=== PATIENT | female | born 1960 | race Caucasian/White ===

== ENCOUNTER 2023-02-19 15:05 | Outpatient (CLI) | payer MEDICAID, SELFPAY ==
[2023-02-19 16:23] LABS: Alanine Aminotransferase 51 U/L (0-33); Albumin Level 4.4 g/dL (3.5-5.2); Alkaline Phosphatase 146 U/L (35-105); Anion Gap 15.2 (5-19); Aspartate Amino Transferase 30 U/L (0-32); Blood Urea Nitrogen 14 mg/dL (8-23); Calcium 9.6 mg/dL (8.5-10.5); Carbon Dioxide 28 mmol/L (22-29); Chloride 100 mmol/L (98-107); Glomerular Filtration Rate 125.9 mL/min (90-130); Glucose 85 mg/dL (65-115); Osmolality Calculated 288 mOsm/kg (285-295); Potassium 4.2 mmol/L (3.5-5.1); Sodium 139 mmol/L (136-145); Total Bilirubin 0.2 mg/dL (0.15-1.2); Total Protein 7.4 g/dL (6.6-8.7)
== END 2023-02-19 15:06 | disposition home or self-care (01) ==
LOC: SPT 15:07
PROVIDERS: Visit Provider Podiatrist Foot & Ankle Surgery
DX: Z46.89 Encounter for fitting and adjustment of other specified devices (principal); M72.2 Plantar fascial fibromatosis; B35.1 Tinea unguium
CPT/HCPCS: 36415; 80053; 97760; L4397

== ENCOUNTER 2023-02-26 11:41 | Outpatient (CLI) | payer MEDICAID, SELFPAY ==
--- NOTE | 2023-02-26 11:49 | MM_ITS ---
WS: [id number] BILATERAL 3D TOMOSYNTHESIS DIGITAL SCREENING MAMMOGRAPHY WITH CAD CLINICAL INFORMATION: SCREENING HISTORY: Screening mammogram. No current complaints. COMPARISON: Baseline TECHNIQUE: Bilateral CC and MLO views. FINDINGS: The breasts are composed of heterogeneous fibroglandular density tissue, which can limit the detectio n of small underlying mass lesions. 11 mm spiculated lesion anterior RIGHT breast best seen on the ML O view. Recommend RIGHT diagnostic mammography and ultrasound for further evaluation. Unremarkable LEFT breast. Punctate and lucent centered calcifications. MM/[place] [id number] IMPRESSION: BI-RADS: 0-Incomplete: Need additional imaging evaluation FOLLOW UP: Need Additional Imaging 11 mm spiculated lesion anterior RIGHT breast best seen on the MLO view. Recomm end RIGHT diagnostic mammography and ultrasound for further evaluation.
== END 2023-02-26 11:42 | disposition home or self-care (01) ==
PROVIDERS: PCP Family Medicine; Visit Provider Family Medicine
DX: Z12.31 Encounter for screening mammogram for malignant neoplasm of breast (principal)
CPT/HCPCS: 77063; 77067

== ENCOUNTER 2023-04-22 13:54 | Outpatient (CLI) | payer MEDICAID, SELFPAY ==
--- NOTE | 2023-04-22 14:03 | MM_ITS ---
WS: [id number] RIGHT 3D TOMOSYNTHESIS DIGITAL MAMMOGRAPHY WITH CAD CLINICAL INFORMATION: ABNORMAL MAMMO HISTORY: Additional views COMPARISON: February 26, 2023 TECHNIQUE: 3 views of the right breast were obtained. FINDINGS: The right breast is composed of heterogeneous fibroglandular density tissue, which can limit the dete ction of small underlying mass lesions. Previously described 11 mm spiculated lesion anterior RIGHT b reast partially compresses out on the spot compression views. Ultrasound described below. ULTRASOUND BREAST RIGHT TECHNIQUE: Ultrasound right breast focused area of concern. CLINICAL INFORMATION: ABNORMAL MAMMO FINDINGS: Ultrasound RIGHT breast at the 11 to 3:00 position. At the 12:00 position 2 cm from the nipple is a s mall shadowing ill-defined hypoechoic lesion measuring approximately 5.2 x 4.4 x 4.8 mm. This is inde terminant and recommend further evaluation with ultrasound-guided biopsy. MM/[place] [id number] IMPRESSION: BI-RADS: 4-Suspicious Finding-Biopsy Should Be Considered FOLLOW UP: US Guided Biopsy Recommended
== END 2023-04-22 13:55 | disposition home or self-care (01) ==
PROVIDERS: PCP Family Medicine; Visit Provider Family Medicine
DX: R92.8 Other abnormal and inconclusive findings on diagnostic imaging of breast (principal)
CPT/HCPCS: 76642; 77061; G0279

== ENCOUNTER 2023-05-15 13:58 | Outpatient (CLI) | payer MEDICAID, SELFPAY ==
--- NOTE | 2023-05-15 14:10 | US_ITS ---
WS: [id number] ULTRASOUND-GUIDED RIGHT BREAST BIOPSY CLINICAL INFORMATION: R BREAST LUMP COMPARISON: 04/22/2023 FINDINGS: The procedure including risks, benefits, and complications were discussed with the patient who agreed to proceed. Using sterile technique patient was prepped and draped in the usual sterile fashion. Aft er 1% lidocaine utilizing real-time ultrasound guidance four 14-gauge cores were obtained of the RIGH T breast lesion at the 12 o'clock position 2 cm from the nipple. Subsequently a titanium clip was lyle ashley in the biopsy cavity. No immediate complications. Pathology demonstrates Right breast, 12:00 position, 2.0 cm from nipple, needle core biopsy: 1. Benign breast parenchyma with focal stromal fibrosis/hyalinization. 2. Rare background benign breast epithelial components with focal usual ductal hyperplasia. 3. No in-situ or invasive malignancy is seen. IMPRESSION: 1. Uncomplicated ultrasound-guided RIGHT breast biopsy. 2. The pathology demonstrates benign breast parenchyma. No malignancy. 3. Recommend return to annual screening mammography. US/[place] [id number] BI-RADS: 2-Benign FOLLOW UP: 1 Year Follow-up
== END 2023-05-15 13:59 | disposition home or self-care (01) ==
PROVIDERS: PCP Family Medicine; Visit Provider Family Medicine
DX: N63.15 Unspecified lump in the right breast, overlapping quadrants (principal); N62 Hypertrophy of breast; N60.11 Diffuse cystic mastopathy of right breast
CPT/HCPCS: 19083; 88305

== ENCOUNTER → 2023-11-08 11:50 | Outpatient (BNVA) | payer MEDICAID, SELFPAY | PROVIDERS: PCP Family Medicine; Visit Provider Family Medicine Adult Medicine | DX: R79.89 Other specified abnormal findings of blood chemistry (principal); R73.03 Prediabetes; D75.1 Secondary polycythemia; J43.9 Emphysema, unspecified; R63.5 Abnormal weight gain; R03.0 Elevated blood-pressure reading, without diagnosis of hypertension | CPT/HCPCS: 80053; 83036; 84443; 85025 ==

== ENCOUNTER → 2023-11-18 10:19 | Outpatient (BNVA) | payer MEDICAID, SELFPAY | PROVIDERS: PCP Family Medicine; Referring Provider Family Medicine; Visit Provider Internal Medicine Pulmonary Disease | DX: R06.02 Shortness of breath (principal) | CPT/HCPCS: 36415; 82785; 86003 ==

== ENCOUNTER 2023-12-05 10:23 | Outpatient (CLI) | payer MEDICAID, SELFPAY ==
--- NOTE | 2023-12-05 10:30 | CT_ITS ---
WS: [id number] LDCT LUNG CANCER SCREENING HISTORY: Cancer Screen TECHNIQUE: Axial imaging performed from the apices to 1 cm below the costophrenic angles. Coronal and sagittal reformats are submitted with axial MIP series. All CT scans at [facility] use at least one of these dose optimization techniques: automated exposure control; mA and/or kV adjustment per patient size (includes targeted exams where dose is matched to clinical indication); or iterativ e reconstruction. DLP: 92.49 mGy.cm DIvol: Mean CTDIvol: 2.30 (mGy) COMPARISON: None available. Diagnostic quality: Satisfactory Lungs: Moderate pulmonary hyperexpansion with centrilobular emphysema. Areas of mild mosaic attenuati on bilaterally. Slightly spiculated, noncalcified solid nodule in the RIGHT upper lobe measures 11 mm . No additional mass or nodule identified. Heart: Normal size heart with no pericardial effusion.. Other findings: Mild atherosclerosis aorta. Normal pulmonary artery. No adenopathy. Small hiatal tray ia. Lobulated LEFT adrenal adenoma 17 x 16 mm. Increase in thoracic kyphosis with scoliosis. IMPRESSION: CT/CT lung screening [id number] LUNG-RADS: 4A-Probably Suspicious FOLLOW UP: 3 Month LDCT OTHER FINDINGS (S MODIFIER): None.
== END 2023-12-05 10:24 | disposition home or self-care (01) ==
LOC: RAD 10:24
PROVIDERS: PCP Family Medicine; Visit Provider Internal Medicine Pulmonary Disease
DX: Z12.2 Encounter for screening for malignant neoplasm of respiratory organs (principal); F17.210 Nicotine dependence, cigarettes, uncomplicated; J43.2 Centrilobular emphysema; R91.1 Solitary pulmonary nodule
CPT/HCPCS: 71271

== ENCOUNTER 2023-12-12 12:44 | Outpatient (CLI) | payer MEDICAID, SELFPAY ==
[2023-12-12 13:08] VITALS: PULSE 86; RESP 18; O2SAT 98
[2023-12-12] MEDS: albuterol 2.5 mg/3 mL Neb INHALATION (13:08)
[2023-12-12 13:12] VITALS: PULSE 85
== END 2023-12-12 12:45 | disposition home or self-care (01) ==
PROVIDERS: PCP Family Medicine Adult Medicine; Visit Provider Internal Medicine Pulmonary Disease
DX: F17.200 Nicotine dependence, unspecified, uncomplicated (principal)
CPT/HCPCS: 94060; 94618; 94726; 94729; J7613

== ENCOUNTER 2023-12-24 10:06 | Outpatient (CLI) | payer MEDICAID, SELFPAY ==
--- NOTE | 2023-12-24 10:30 | PETR_ITS ---
PROCEDURE INFORMATION: Exam: PET/CT Skull Base to Mid-thigh Exam date and time: 12/24/2023 10:57 AM Age: 63 years old Clinical indication: Abnormal findings; 11mm lung nodule LABS AND CLINICAL REPORTS: Glucose: 112 mg/dl Treatment strategy for malignancy (PET staging): Initial Staging (PI) TECHNIQUE: Imaging protocol: Following at least four-hour fasting and following the injection of radiopharmaceutical, low dose CT images were obtained. Then, PET images were obtained. Attenuation corrected images were constructed using the CT scan. Fused images of PET and CT were reviewed. The standardized uptake values (SUV) reported below are maximum values within a region of interest, expressed in gm/ml. Exam includes orbital meatal line to mid-thigh. Radiopharmaceutical: 11.9 mCi F-18 FDG (Fluorodeoxyglucose), IV. Time of imaging post radiopharmaceutical administration: 1 hour Injection site: Left antecubital COMPARISON: No relevant prior studies available. FINDINGS: Brain: Visualized brain has normal physiologic uptake. Pharynx: No abnormal uptake. Larynx: No abnormal uptake. Lungs, pleura and trachea: No abnormal uptake. A solid right upper lobe nodule on series 3, image 70 measuring 1.1 cm in diameter is noted, SUV max 1.3. An approximately 2 mm solid noncalcified left upper lobe nodule is noted laterally on series 3, image 71 without elevated uptake. [id number] bilateral centrilobular emphysematous changes are present. Heart: Normal physiologic uptake. Mediastinal space: No abnormal uptake. Liver: No abnormal uptake. Gallbladder and bile ducts: No abnormal uptake. Pancreas: No abnormal uptake. Spleen: No abnormal uptake. Adrenal glands: Mild nodularity of the bilateral adrenal glands is noted with low-level uptake, SUV max 2.1 on the left and SUV max 2.2 on the right. The largest nodule is present on the left measuring 1.8 x 1.4 cm on series 3, image 119. Kidneys and ureters: No abnormal uptake. Stomach and bowel: No abnormal uptake. Reproductive: Mild focal uptake in the region of the uterine fundus on the left is noted, SUV max 3.9 on PET series 12, image 183. This uptake may alternatively be within an adjacent left ovary. Vasculature: No abnormal uptake. There are diffuse atherosclerotic changes. Lymph nodes: There are mildly prominent lymph nodes in the region of the demian hepatis and portacaval region without elevated uptake for example in the portacaval region measuring 1.8 x 1.4 cm on series 3, image 122, SUV max 2.1. Bones/joints: No abnormal uptake in the visualized axial and appendicular skeleton. Degenerative changes in the spine are noted. Soft tissues: There is benign-appearing muscular uptake in the shoulder regions bilaterally which is likely physiologic in nature. METRICS: Mediastinal blood pool: SUV max 2.4 [facility] [id number] IMPRESSION: 1. A solid right upper lobe nodule is not significantly radiotracer avid (SUV max 1.3), with uptake less than that of mediastinal blood pool which favors a benign etiology. Non hypermetabolic malignant involvement cannot be entirely excluded. 2. A 2 mm left upper lobe nodule is not radiotracer avid. Assessment of small nodules can be limited by PET-CT. 3. Low-level uptake in the bilateral adrenal glands are noted with underlying mild nodularity which is greatest on the left favoring a benign etiology such as adenomas. 4. Non radiotracer avid mildly prominent lymph nodes in the region of the demian hepatis and portacaval region are noted, likely benign. 5. Low-level uptake in the region of the uterine fundus on the left and/or within the adjacent left ovary is noted, which appears slightly greater than expected for a postmenopausal female. Although this may represent physiologic or inflammatory uptake, consider dedicated pelvic MRI with and without contrast for further assessment to exclude neoplastic involvement. 6. Additional nonurgent findings as detailed above.
== END 2023-12-24 10:07 | disposition home or self-care (01) ==
LOC: RAD 10:07
PROVIDERS: PCP Family Medicine Adult Medicine; Visit Provider Internal Medicine Pulmonary Disease
DX: R91.1 Solitary pulmonary nodule (principal)
CPT/HCPCS: 78815; A9552

== ENCOUNTER → 2024-01-14 08:34 | Outpatient (BNVA) | payer MEDICAID, SELFPAY | PROVIDERS: PCP Family Medicine Adult Medicine; Visit Provider Obstetrics & Gynecology | DX: N83.8 Other noninflammatory disorders of ovary, fallopian tube and broad ligament (principal); R94.8 Abnormal results of function studies of other organs and systems | CPT/HCPCS: 76830 ==

== ENCOUNTER 2024-06-10 10:23 | Outpatient (CLI) | payer MEDICAID, SELFPAY ==
--- NOTE | 2024-06-10 10:30 | CTR_ITS ---
PROCEDURE INFORMATION: Exam: CT Chest Without Contrast; Diagnostic Exam date and time: 06/10/2024 10:43 AM Age: 63 years old Clinical indication: Condition or disease; Lung condition and disease; Pulmonary nodule, solitary; Additional info: Suspicious rul lung nodule TECHNIQUE: Imaging protocol: Diagnostic computed tomography of the chest without contrast. Radiation optimization: All CT scans at this facility use at least one of these dose optimization techniques: automated exposure control; mA and/or kV adjustment per patient size (includes targeted exams where dose is matched to clinical indication); or iterative reconstruction. COMPARISON: PT PET skull to thigh INIT [id number] 12/24/2023 10:57 AM RADIATION DOSE METRICS: Total DLP (mGy-cm): 500.82 FINDINGS: Thyroid: Right thyroid lobe is not well seen. May be surgically absent. Left lobe and isthmus are unremarkable. Lungs: Unchanged to minimally decreased size of solitary right upper lobe nodule, measuring 10 x 9 mm axial on this study, previously 11 x 10 mm. No new or enlarging nodule identified. Baseline moderate centrilobular emphysema with apical predominance. Pleural spaces: Unremarkable. No pneumothorax. No pleural effusion. Heart: Unremarkable. No cardiomegaly. No pericardial effusion. Mild coronary vessel atherosclerosis. Esophagus: Patulous , fluid containing esophagus. Lymph nodes: No mediastinal or hilar adenopathy. Vasculature: Unremarkable. No aortic aneurysm. Liver: Hypodense nodule measuring 12 x 15 mm is partially seen in the right hepatic lobe segment 4B on image 58 series 3 Adrenal glands: Two small nodules are identified in the left adrenal gland. The more cephalad nodule attenuates at 17 Hounsfield units and measures 11 x 12 mm. The more caudad nodule measures 9 x 16 mm and attenuates at 12 Hounsfield units. Right adrenal nodule measures 8 x 13 mm and attenuates at 17 Hounsfield units. Bones/joints: Remote, healed fracture of the right lateral 6th rib. No acute abnormality. Soft tissues: Unremarkable. CT/CT chest wo con [id number] IMPRESSION: 1. Right upper lobe nodule is unchanged to minimally decreased in size, measuring 10 x 9 mm axial on this study, previously 11 x 10 mm. No new or enlarging nodule identified. 2. Background moderate emphysema. 3. Bilateral adrenal gland nodules. Likely representing adenomas. Unchanged in size from the comparison, and were not hypermetabolic on prior PET-CT. 4. 15 mm liver nodule is nonspecific. If there is history of malignancy, metastatic disease suspected. Otherwise, may represent benign etiology. Recommend dedicated liver protocol CT for complete evaluation. COMMENTS: 1. Consistent with the [employer]'s Incidental Findings Committee white paper (J Am Maury Radiol 2017): For any incidental adrenal lesion greater than or equal to 1 cm but less than or equal to 4 cm classified in this report as benign, likely benign, or containing fat (including classification as an adenoma or myelolipoma), no follow-up imaging is recommended per consensus recommendations based on imaging criteria. Further lab evaluation could be pursued if warranted based on clinical findings. 2. The presence of pulmonary emphysema on CT is an independent risk factor for lung cancer. In the absence of a history or active diagnosis of lung cancer, it is recommended that this patient with emphysema be evaluated for enrollment in a low dose CT lung cancer screening program.
== END 2024-06-10 10:24 | disposition home or self-care (01) ==
LOC: RAD 10:24
PROVIDERS: PCP Family Medicine Adult Medicine; Visit Provider Internal Medicine Critical Care Medicine
DX: R91.1 Solitary pulmonary nodule (principal); J43.2 Centrilobular emphysema; K76.89 Other specified diseases of liver; D35.00 Benign neoplasm of unspecified adrenal gland
CPT/HCPCS: 71250

== ENCOUNTER 2024-06-24 20:00 | Outpatient (CLI) | payer MEDICAID, SELFPAY | END 2024-06-24 20:01 | disposition home or self-care (01) | LOC: SLEEP 21:17 | PROVIDERS: PCP Family Medicine Adult Medicine; Visit Provider Internal Medicine Pulmonary Disease | DX: G47.33 Obstructive sleep apnea (adult) (pediatric) (principal); Z99.89 Dependence on other enabling machines and devices | CPT/HCPCS: 95811 ==

== ENCOUNTER → 2024-07-08 11:19 | Outpatient (BNVA) | payer MEDICAID, SELFPAY | PROVIDERS: PCP Family Medicine Adult Medicine | DX: R79.89 Other specified abnormal findings of blood chemistry (principal) | CPT/HCPCS: 80053; 83036; 85025 ==

== ENCOUNTER → 2024-07-16 11:09 | Outpatient (BNVA) | payer MEDICAID, SELFPAY | PROVIDERS: PCP Family Medicine Adult Medicine; Visit Provider Family Medicine Adult Medicine | DX: D64.9 Anemia, unspecified (principal) | CPT/HCPCS: 82728; 83550 ==

== ENCOUNTER 2024-08-18 08:25 | Outpatient (CLI) | payer MEDICAID, SELFPAY ==
--- NOTE | 2024-08-18 08:30 | CT_ITS ---
WS: [id number] CT ABDOMEN WITH AND WITHOUT CONTRAST HISTORY: Liver Nodule Multi phase liver imaging. Oral contrast has not been provided. Coronal and sagittal reformats are peraza bmitted. All CT scans at [facility] use at least one of these dose optimization techniques: a utomated exposure control; mA and/or kV adjustment per patient size (includes targeted exams where do se is matched to clinical indication); or iterative reconstruction. IV CONTRAST: Omnipaque 350; 100 mL IV. Oral contrast: No DLP: 1773.18 mGy.cm COMPARISON: Chest CT 06/10/2024, PET/CT 12/24/2023 Lower thorax: Linear scar at the RIGHT lung base. No mass or nodule or pneumonia. Heart is normal siz e. Small hiatal hernia. Liver/biliary system: Liver is normal size. No mass or nodule or heterogeneity is identified on the p ostcontrast imaging through the liver. Normal appearance of the portal vein. Liver is normal size. Gallbladder: Normal. No gallstones or wall thickening. No pericholecystic fluid. Pancreas: Normal size pancreas and pancreatic duct. No adjacent inflammation. Spleen: Normal size spleen. No mass or infarct. Adrenal glands: Bilateral adrenal gland nodularity. Slightly greater nodularity involving the LEFT ad renal gland but this has been present on prior studies and negative on PET/CT. Right kidney: Normal. Left kidney: Normal. Aorta: Normal. Lymphadenopathy: None. Free fluid: None. GI tract: Unremarkable. Abdominal wall: Unremarkable abdominal wall. No hernia. Visualized osseous structures: Unremarkable. CT/CT abdomen wo/w con [id number] IMPRESSION: 1. No liver mass or nodules identified on a dedicated CT of the liver. 2. Stable bilateral adrenal gland nodularities. PET/CT negative also. 3. No renal obstruction.
[2024-08-18] MEDS: iohexol 350 mg/mL 500 mL Btl (per mL) IV (08:47)
== END 2024-08-18 08:26 | disposition home or self-care (01) ==
LOC: RAD 08:25
PROVIDERS: PCP Family Medicine Adult Medicine
DX: K76.89 Other specified diseases of liver (principal); D35.01 Benign neoplasm of right adrenal gland; D35.02 Benign neoplasm of left adrenal gland
CPT/HCPCS: 74170

== ENCOUNTER 2024-10-28 08:15 | Outpatient (CLI) | payer MEDICAID, SELFPAY ==
[2024-10-28 08:43] LABS: Basophils # 0.1 10^3/uL (0.0-0.1); Basophils % 0.6 %; Eosinophils # 0.6 10^3/uL (0.0-0.8); Eosinophils % 6.7 %; Hematocrit 43.7 % (36-47); Lymphocytes # 2.5 10^3/uL (0.8-4.8); Lymphocytes % 27.9 %; Mean Corpuscular HGB Conc 30.9 g/dL (30-55); Mean Corpuscular Hemoglobin 25.3 pg (27-33); Mean Platelet Volume 8.8 fL (7.4-10.4); Monocytes # 0.6 10^3/uL (0.2-0.9); Monocytes % 6.5 %; Neutrophils # 5.21 10^3/uL (1.8-7.7); Nucleated Red Blood Cells % 0 %; Platelet Count 562 10^3/cmm (157-399); Red Blood Count 5.33 10^6/uL (3.85-5.65); Red Cell Distribution Width 15.8 % (12.1-15.1); White Blood Count 8.97 10^3/uL (3.29-11.43)
[2024-10-28 09:01] LABS: Alanine Aminotransferase 16 U/L (0-33); Alkaline Phosphatase 144 U/L (35-105); Aspartate Amino Transferase 16 U/L (0-32); Blood Urea Nitrogen 14 mg/dL (8-23); Calcium 9.7 mg/dL (8.5-10.5); Carbon Dioxide 27 mmol/L (22-29); Chloride 103 mmol/L (98-107); Chol HDL Ratio 4.35 mg/dL (0.0-4.40); Cholesterol 209 mg/dL (0-200); Globulin 3.3 g/dL (1.3-4.6); Glomerular Filtration Rate 72.7 mL/min (90-130); Glucose 101 mg/dL (65-115); HDL Cholesterol 48 mg/dL (60-100); LDL Cholesterol Calculated 129 mg/dL (50-129); LDL HDL Ratio 2.69 RATIO (0.00-3.22); Osmolality Calculated 287 mOsm/kg (285-295); Sodium 138 mmol/L (136-145); Total Bilirubin 0.2 mg/dL (0.15-1.2); Total Protein 7.3 g/dL (6.6-8.7); Triglycerides 158 mg/dL (0-150)
[2024-10-28 09:04] LABS: Estmated Average Glucose 117; Hemoglobin A1C 5.7 % (4.0-6.0)
== END 2024-10-28 08:16 | disposition home or self-care (01) ==
LOC: LAB 08:17
DX: D64.9 Anemia, unspecified (principal); E11.9 Type 2 diabetes mellitus without complications
CPT/HCPCS: 36415; 80053; 80061; 83036; 85025

== ENCOUNTER → 2025-02-16 09:08 | Outpatient (BNVA) | payer MEDICAID, SELFPAY | DX: Z12.4 Encounter for screening for malignant neoplasm of cervix (principal) | CPT/HCPCS: 87624 ==

== ENCOUNTER 2025-02-19 09:42 | Outpatient (CLI) | payer MEDICAID, SELFPAY ==
--- NOTE | 2025-02-19 10:00 | MM_ITS ---
WS: [email or web address] SCREENING DIGITAL TOMOSYNTHESIS MAMMOGRAM WITH CAD HISTORY: screening COMPARISON: 04/22/2023, 02/26/2023 Bilateral CC and MLO with tomosynthesis views submitted. Synthetic mammography reviewed. Computer aided detection analyzed. Breast composition: There are scattered areas of fibroglandular density. No suspicious masses, microcalcifications or architectural distortion. Biopsy clip 12:00 mid depth RIGHT breast. Benign calcifications in each breast. No suspicious mass. MM/MM scr BI tomosynthesis [id number] IMPRESSION: BI-RADS: 2 - Benign. FOLLOW UP: 1 Year Follow-up
== END 2025-02-19 09:43 | disposition home or self-care (01) ==
DX: Z12.31 Encounter for screening mammogram for malignant neoplasm of breast (principal); R92.323 Mammographic fibroglandular density, bilateral breasts; R92.1 Mammographic calcification found on diagnostic imaging of breast
CPT/HCPCS: 77063; 77067

== ENCOUNTER → 2025-02-23 08:31 | Outpatient (BNVA) | payer MEDICAID, SELFPAY | DX: E11.9 Type 2 diabetes mellitus without complications (principal) | CPT/HCPCS: 80053; 83036; 83550; 85025 ==

== ENCOUNTER 2025-03-04 08:50 | Outpatient (CLI) | payer MEDICAID, SELFPAY ==
--- NOTE | 2025-03-04 09:00 | CT_ITS ---
WS: [email or web address] LDCT LUNG CANCER SCREENING TECHNIQUE: Noncontrast CT of the chest with coronal and sagittal reformatted images. CLINICAL INFORMATION: screening COMPARISON: None. DLP: 76.51 mGy.cm DIvol: Mean CTDIvol: 1.80 (mGy) All CT scans at [facility] use at least one of these dose optimization techniques: automated exposure control; mA and/or kV adjustment per patient size (includes targeted exams where dose is matched to clinical indication); or iterative reconstruction. FINDINGS: Advanced chronic emphysematous changes. Noncalcified nodule RIGHT upper lobe measuring 10 mm is unchanged since 12/05/2023. This demonstrates SUV uptake of 1.3 on the prior PET/CT. Recommend additional 6-month follow-up to confirm stability. No other new suspicious pulmonary parenchymal normalities. Aortic calcification. Coronary calcification. No mediastinal or hilar lymphadenopathy. No axillary lymphadenopathy. Small esophageal hiatal hernia. Stable LEFT adrenal nodularity. CT/CT lung screening [id number] IMPRESSION: LUNG-RADS: 3-Probably Benign FOLLOW UP: 6 Month LDCT
== END 2025-03-04 08:51 | disposition home or self-care (01) ==
DX: Z12.2 Encounter for screening for malignant neoplasm of respiratory organs (principal); F17.200 Nicotine dependence, unspecified, uncomplicated; J43.8 Other emphysema; R91.1 Solitary pulmonary nodule; I70.0 Atherosclerosis of aorta; I25.10 Atherosclerotic heart disease of native coronary artery without angina pectoris; K44.9 Diaphragmatic hernia without obstruction or gangrene; E27.8 Other specified disorders of adrenal gland
CPT/HCPCS: 71271

== ENCOUNTER → 2025-06-15 11:22 | Outpatient (BNVA) | payer MEDICAID, SELFPAY | PROVIDERS: Visit Provider Internal Medicine | DX: E11.9 Type 2 diabetes mellitus without complications (principal) | CPT/HCPCS: 36415; 83540 ==

== ENCOUNTER 2025-07-29 11:50 | Outpatient (CLI) | payer MEDICAID, SELFPAY ==
--- NOTE | 2025-07-29 11:55 | XR_ITS ---
WS: [email or web address] Exam: XR chest 2V* [id number] Date/Time of Exam: 07/29/2025 11:58 AM Reason For Exam: SOB, coughx1.5 months No priors. The lungs are fully expanded and clear. Normal cardiomediastinal silhouette. No pleural effusion. Bony structures are intact. Mild thoracic levoscoliosis. XR/XR chest 2V* [id number] IMPRESSION: 1. No acute cardiopulmonary finding.
== END 2025-07-29 11:51 | disposition home or self-care (01) ==
LOC: RAD 11:52
DX: J43.1 Panlobular emphysema (principal); M41.84 Other forms of scoliosis, thoracic region
CPT/HCPCS: 71046; 80053; 83036; 85025

== ENCOUNTER → 2025-08-23 15:09 | Outpatient (BNVA) | payer MEDICAID, SELFPAY | PROVIDERS: Visit Provider Internal Medicine | DX: J44.9 Chronic obstructive pulmonary disease, unspecified (principal); T78.40XA Allergy, unspecified, initial encounter; J43.9 Emphysema, unspecified; R91.1 Solitary pulmonary nodule; Q42.8 Congenital absence, atresia and stenosis of other parts of large intestine | CPT/HCPCS: 36415; 71046; 82103; 85025; 86003 ==

== ENCOUNTER 2025-09-03 12:04 | Outpatient (CLI) | payer MEDICAID, SELFPAY ==
--- NOTE | 2025-09-03 12:15 | CT_ITS ---
WS: [email or web address] CT chest wo con [id number] HISTORY: 6 month LDCT follow-up, abnormal TECHNIQUE: Axial imaging performed through the thorax. Coronal and sagittal reformats are submitted. All CT scans at [facility] use at least one of these dose optimization techniques: automated exposure control; mA and/or kV adjustment per patient size (includes targeted exams where dose is matched to clinical indication); or iterative reconstruction. CONTRAST: None DLP: 562.31 mGy.cm COMPARISON: 03/04/2025, 06/10/2024 Lungs and central airway: Lungs are markedly hyperinflated. Centrilobular emphysema. Reidentified is a noncalcified well-circumscribed nodule in the RIGHT upper lobe measuring 10 mm in diameter. Mild dependent changes at the RIGHT lung base. No additional mass or nodule. Pleura: Normal. No pleural effusion. Heart and pericardium: Normal size heart with no pericardial effusion. Mediastinum and alicia: No mediastinum or hilar adenopathy. Vessels: Mild atherosclerosis aorta. Normal size pulmonary artery. Chest wall and lower neck: No soft tissue masses. Upper abdomen: Bilateral adrenal gland nodules and thickening are stable. LEFT adrenal gland nodule is largest at 1.6 x 1.5 cm. Osseous structures: No destructive process. CT/CT chest wo con [id number] IMPRESSION: 1. No change in the noncalcified well-circumscribed nodule RIGHT upper lobe wi th a maximum diam of 10 mm. Stable since 12/05/2023. Return to annual lung screen ing CT. 2. Stable bilateral adrenal nodules. 3. Centrilobular emphysema.
== END 2025-09-03 12:05 | disposition home or self-care (01) ==
LOC: RAD 12:05
DX: R91.8 Other nonspecific abnormal finding of lung field (principal); J43.2 Centrilobular emphysema; R91.1 Solitary pulmonary nodule
CPT/HCPCS: 71250